=== PATIENT | male | born 1990 | race African-American/Black ===

== ENCOUNTER 2017-07-01 04:53 | Emergency (ER) | payer OTHER ==
[2017-07-01 05:04] VITALS: BP 153/98
[2017-07-01] MEDS ORDERED: METOCLOPRAMIDE HCL ORAL SOLN 10 MG/10 ML UDCUP PO ONE (07:35)
[2017-07-01] MEDS ORDERED: MAG HYDROX/AL HYDROX/SIMETH SUSP 30 ML UDCUP PO ONE (07:35)
[2017-07-01] MEDS ORDERED: LIDOCAINE 2% VISCOUS SOLN 20 ML UDCUP PO ONE (07:35)
[2017-07-01] MEDS ORDERED: FAMOTIDINE 20 MG TABLET PO ONE (08:22)
[2017-07-01 08:59] LABS: ABSOLUTE EOSINOPHILS # (AUTO) 0.3 10^3/uL (0.0-0.6); ABSOLUTE LYMPHOCYTES (AUTO) 1.5 10^3/uL (0.5-4.7); ABSOLUTE MONOCYTES (AUTO) 0.9 10^3/uL (0.1-1.4); ABSOLUTE NEUT (AUTO) 8.1 10^3/uL (1.7-8.2); BASOPHILS % (AUTO) 0.4 % (0-2); EOSINOPHILS % (AUTO) 3.1 % (0-6); HEMATOCRIT 39.7 % (37.9-51.0); HEMOGLOBIN 13.4 g/dL (13.5-17.0); HGB HCT DIFFERENCE 0.5; LYMPHOCYTES % (AUTO) 13.5 % (13-45); MEAN CORPUSCULAR HEMOGLOBIN 30.1 pg (27.0-33.4); MEAN CORPUSCULAR HGB CONC 33.7 g/dL (32.0-36.0); MEAN CORPUSCULAR VOLUME 89 fl (80-97); MONOCYTES % (AUTO) 8.5 % (3-13); RED BLOOD COUNT 4.46 10^6/uL (4.35-5.55); RED CELL DISTRIBUTION WIDTH 12.3 % (11.5-14.0); SEGMENTED NEUTROPHILS % (AUTO) 74.5 % (42-78); WHITE BLOOD COUNT 10.9 10^3/uL (4.0-10.5)
[2017-07-01 09:17] LABS: ALANINE AMINOTRANSFERASE 29 U/L (21-72); ALBUMIN 4.1 g/dL (3.5-5.0); ALKALINE PHOSPHATASE 66 U/L (38-126); ANION GAP 9 (5-19); ASPARTATE AMINO TRANSFERASE 20 U/L (17-59); BILIRUBIN,DIRECT 0.3 mg/dL (0.0-0.4); BILIRUBIN,TOTAL 0.4 mg/dL (0.2-1.3); BLOOD UREA NITROGEN 16 mg/dL (7-20); CALCIUM 9.5 mg/dL (8.4-10.2); CARBON DIOXIDE 25 mmol/L (22-30); CHLORIDE 107 mmol/L (98-107); CREATININE RESULT 0.83 mg/dL (0.52-1.25); GLUCOSE 93 mg/dL (75-110); SODIUM 141.3 mmol/L (137-145)
[2017-07-01 09:39] LABS: AMORPHOUS SEDIMENT,URINE TRACE /HPF; APPEARANCE,URINE SLIGHTLY-CLOUDY; BILIRUBIN,URINE NEGATIVE (NEGATIVE); GLUCOSE, URINE NEGATIVE (NEGATIVE); KETONES,URINE NEGATIVE (NEGATIVE); LEUKOCYTE ESTERASE,URINE NEGATIVE (NEGATIVE); NITRITE,URINE NEGATIVE (NEGATIVE); PROTEIN,URINE NEGATIVE (NEGATIVE); URINE SPECIFIC GRAVITY 1.025; UROBILINOGEN,URINE NEGATIVE mg/dL (<2.0)
--- NOTE | 2017-07-01 10:04 | ER Document Report ---
ED GI/ - General Chief Complaint: Epigastric Pain Stated Complaint: ABDOMINAL PAIN Time Seen by Provider: 07/01/17 07:34 Mode of Arrival: Ambulatory Information source: Patient Notes: Patient is a 26-year-old male who presents to the ER today for upper abdominal pain 1 month, worse over the past week. Patient states that it feels like he has to burp but cannot. He admits to some intermittent diarrhea as well. Patient that radiates up into his throat. He denies any fevers or chills. Describes the pain as a pressure and a burning he denies any gallbladder issues. He denies nausea or vomiting. TRAVEL OUTSIDE OF THE [place] IN LAST 30 DAYS: No - Related Data Allergies/Adverse Reactions: No Known Allergies Allergy (Verified 07/01/17 05:02) Past Medical History - General Information source: Patient - Social History Smoking Status: Current Every Day Smoker Chew tobacco use (# tins/day): No Frequency of alcohol use: Heavy Drug Abuse: None Family History: Reviewed & Not Pertinent Patient has suicidal ideation: No Patient has homicidal ideation: No Renal/ Medical History: Denies: Hx Peritoneal Dialysis - Immunizations Immunizations up to date: Yes Hx Diphtheria, Pertussis, Tetanus Vaccination: Yes Review of Systems - Review of Systems Constitutional: No symptoms reported EENT: No symptoms reported Cardiovascular: No symptoms reported Respiratory: No symptoms reported Gastrointestinal: See HPI Genitourinary: No symptoms reported Male Genitourinary: No symptoms reported Musculoskeletal: No symptoms reported Skin: No symptoms reported Hematologic/Lymphatic: No symptoms reported Neurological/Psychological: No symptoms reported Physical Exam - Vital signs Vitals: Temp Pulse Resp BP Pulse Ox 98.4 F 63 18 153/98 H 99 07/01/17 05:02 07/01/17 05:02 07/01/17 05:02 07/01/17 05:02 07/01/17 05:02 - Notes Notes: PHYSICAL EXAMINATION: GENERAL: Well-appearing and in no acute distress. HEAD: Atraumatic, normocephalic. EYES: Pupils equal round and reactive to light, extraocular movements intact, sclera anicteric, conjunctiva are normal. ENT: ear canals without erythema or foreign body, TMs pearly nichols with good bony landmarks, nares patent, oropharynx clear without exudates. Moist mucous membranes. NECK: Normal range of motion, supple without lymphadenopathy LUNGS: CTAB and equal. No wheezes rales or rhonchi. HEART: Regular rate and rhythm without murmurs ABDOMEN: Soft, mild epigastric tenderness. No guarding, no rebound BACK: no vertebral tenderness, normal ROM GI/: no CVA tenderness EXTREMITIES: Normal range of motion, no pitting edema. No cyanosis. NEUROLOGICAL: Cranial nerves grossly intact. Normal sensory/motor exams. PSYCH: Normal mood, normal affect. SKIN: Warm, Dry, normal turgor, no rashes or lesions noted Course - Re-evaluation Re-evalutation: 07/01/17 10:01 lab work is unremarkable today. Patient feels better after GI cocktail. - Vital Signs Vital signs: Temp Pulse Resp BP Pulse Ox 98.4 F 63 18 153/98 H 99 07/01/17 05:02 07/01/17 05:02 07/01/17 05:02 07/01/17 05:02 07/01/17 05:02 - Laboratory Result Diagrams: 07/01/17 08:40 07/01/17 08:40 Laboratory results interpreted by me: 07/01/17 08:40 WBC 10.9 H Hgb 13.4 L Discharge - Discharge Clinical Impression: Epigastric pain Condition: Stable Disposition: HOME, SELF-CARE Additional Instructions: Return immediately for any new or worsening symptoms. Follow up with primary care provider, call tomorrow to make followup appointment. Prescriptions: Ranitidine HCl [Zantac 150 mg Tablet] 150 mg PO BID #30 tablet Sucralfate [Carafate 1 gm Tablet] 1 gm PO ACHS #40 tablet
== END 2017-07-01 10:56 | disposition home or self-care (01) ==
LOC: ER 04:53
DX: R10.13 Epigastric pain (principal); R10.10 Upper abdominal pain, unspecified; R19.7 Diarrhea, unspecified; F17.200 Nicotine dependence, unspecified, uncomplicated
CPT/HCPCS: 99284; 36415; 85025; 80053; 81001; J3490

== ENCOUNTER 2018-01-02 02:26 | Emergency (ER) | payer SELFPAY ==
[2018-01-02] MEDS ORDERED: NORMAL SALINE 1000 ML 1,000 ML IV ONE (02:55)
[2018-01-02] MEDS ORDERED: ONDANSETRON HCL INJ/PF 4 MG/2 ML SDV IV ONE (02:55)
[2018-01-02] MEDS ORDERED: KETOROLAC TROMETHAMINE INJ/PF 30 MG/1 ML SDV IV ONE (02:55)
--- NOTE | 2018-01-02 02:56 | ER Document Report ---
ED GI/ - General Chief Complaint: Abdominal Pain Stated Complaint: ABDOMINAL PAIN Time Seen by Provider: 01/02/18 02:50 Notes: Patient is a 27-year-old male who comes emergency department for chief complaint of pain in his upper abdomen and right upper abdomen. He states he has been feeling pain in it over the past couple nights, tonight it kept waking him up and he could not sleep. He vomited yesterday but not today, he states pain is much worse with food. He denies any surgeries. He smokes cigarettes and reviewed, drinks alcohol, denies any recreational drugs, denies any daily medications, denies any medical history otherwise. TRAVEL OUTSIDE OF THE [place] IN LAST 30 DAYS: No - Related Data Allergies/Adverse Reactions: No Known Allergies Allergy (Verified 07/01/17 05:02) Past Medical History - General Information source: Patient - Social History Smoking Status: Current Every Day Smoker Smoking Education Provided: Yes - <3 min Frequency of alcohol use: Social Drug Abuse: Marijuana Lives with: Alone Family History: Reviewed & Not Pertinent - Medical History Medical History: Negative Renal/ Medical History: Denies: Hx Peritoneal Dialysis Surgical Hx: Negative - Immunizations Immunizations up to date: Yes Hx Diphtheria, Pertussis, Tetanus Vaccination: Yes Review of Systems - Review of Systems Constitutional: No symptoms reported EENT: No symptoms reported Cardiovascular: No symptoms reported Respiratory: No symptoms reported Gastrointestinal: See HPI Genitourinary: No symptoms reported Male Genitourinary: No symptoms reported Musculoskeletal: No symptoms reported Skin: No symptoms reported Hematologic/Lymphatic: No symptoms reported Neurological/Psychological: No symptoms reported Physical Exam - Vital signs Vitals: Temp Pulse Resp BP Pulse Ox 97.7 F 60 18 167/101 H 100 01/02/18 02:36 01/02/18 02:36 01/02/18 02:36 01/02/18 02:36 01/02/18 02:36 Interpretation: Normal - General General appearance: Appears well In distress: None - HEENT Head: Normocephalic, Atraumatic Eyes: Normal Pupils: PERRL - Respiratory Respiratory status: No respiratory distress Chest status: Nontender Breath sounds: Normal. No: Decreased air movement, Wheezing Chest palpation: Normal - Cardiovascular Rhythm: Regular. No: Tachycardia Heart sounds: Normal auscultation, S1 appreciated, S2 appreciated Murmur: No - Abdominal Inspection: Normal Distension: No distension Bowel sounds: Normal Tenderness: Tender - Tender in the epigastric area, also somewhat tender in the right upper quadrant, left upper quadrant unremarkable, lower abdomen benign. No overt guarding, rebound tenderness, or rigidity Organomegaly: No organomegaly - Back Back: Normal, Nontender. No: Tender - Extremities General upper extremity: Normal inspection, Nontender, Normal strength, Normal temperature General lower extremity: Normal inspection, Nontender, Normal strength, Normal temperature - Neurological Neuro grossly intact: Yes Cognition: Normal Orientation: AAOx4 Mario Coma Scale Eye Opening: Spontaneous Mario Coma Scale Verbal: Oriented Mario Coma Scale Motor: Obeys Commands [place] Coma Scale Total: 15 Speech: Normal Motor strength normal: LUE, RUE, LLE, RLE Sensory: Normal - Psychological Associated symptoms: Normal affect, Normal mood - Skin Skin Temperature: Warm Skin Moisture: Dry Skin Color: Normal Course - Re-evaluation Re-evalutation: Patient is in no distress on my initial evaluation, he does have mild tenderness in the right upper quadrant and some tenderness in the epigastric area on exam but no guarding or positive Ovalle sign. CBC unremarkable, chemistry unremarkable, lipase is unremarkable. Ultrasound shows cholelithiasis including a 2 cm stone, gallbladder sludge, no pericholecystic fluid, no ductal dilatation. Cholelithiasis without cholecystitis. After Toradol patient is asymptomatic, well-appearing. I discussed with patient. He is currently asymptomatic. Patient unsure if he wants to go home at this time. As result patient was given crackers and fluids for a p.o. trial. He had no symptoms with p.o. trial. Decision was made for patient to follow- up outpatient, provided with Toradol, discussed follow-up, discussed return precautions. Patient states understanding and agreement. - Vital Signs Vital signs: Temp Pulse Resp BP Pulse Ox 97.7 F 60 18 167/101 H 100 01/02/18 02:36 01/02/18 02:36 01/02/18 02:36 01/02/18 02:36 01/02/18 02:36 - Laboratory Result Diagrams: 01/02/18 03:05 01/02/18 03:05 Laboratory results interpreted by me: 01/02/18 01/02/18 03:05 03:05 Hgb 13.4 L Seg Neutrophils % 36.9 L Lymphocytes % 47.2 H Carbon Dioxide 31 H Total Bilirubin 0.1 L ALT 20 L Discharge - Discharge Clinical Impression: Abdominal pain Qualifiers: Abdominal location: epigastric Qualified Code(s): R10.13 - Epigastric pain Cholelithiasis Qualifiers: Cholelithiasis location: gallbladder Cholecystitis presence: without cholecystitis Biliary obstruction: without biliary obstruction Qualified Code(s) : K80.20 - Calculus of gallbladder without cholecystitis without obstruction Condition: Stable Disposition: HOME, SELF-CARE Additional Instructions: You have gallstones in your gallbladder. This is most likely the cause of your pain tonight. Follow-up with the surgical clinic referral, call the number provided to set this up. In the meantime I recommend you avoid fatty foods, take the Toradol as prescribed if needed for pain. Return if you worsen including returned or worsening pain, vomiting, or any other concerning or worsening symptoms. Prescriptions: Ketorolac Tromethamine [Toradol 10 mg Tablet] 10 mg PO Q8HP PRN #30 tablet PRN Reason: Forms: Return to Work Referrals: [facility] [Provider Group] - Follow up as needed
[2018-01-02 03:17] LABS: ABSOLUTE BASOPHILS # (AUTO) 0.1 10^3/uL (0.0-0.2); ABSOLUTE EOSINOPHILS # (AUTO) 0.4 10^3/uL (0.0-0.6); ABSOLUTE LYMPHOCYTES (AUTO) 3.3 10^3/uL (0.5-4.7); ABSOLUTE MONOCYTES (AUTO) 0.7 10^3/uL (0.1-1.4); ABSOLUTE NEUT (AUTO) 2.6 10^3/uL (1.7-8.2); BASOPHILS % (AUTO) 0.9 % (0-2); EOSINOPHILS % (AUTO) 5.7 % (0-6); HEMATOCRIT 40.6 % (37.9-51.0); HEMOGLOBIN 13.4 g/dL (13.5-17.0); LYMPHOCYTES % (AUTO) 47.2 % (13-45); MEAN CORPUSCULAR HEMOGLOBIN 29.2 pg (27.0-33.4); MEAN CORPUSCULAR VOLUME 89 fl (80-97); MONOCYTES % (AUTO) 9.3 % (3-13); PLATELET COUNT 241 10^3/uL (150-450); RED BLOOD COUNT 4.58 10^6/uL (4.35-5.55); RED CELL DISTRIBUTION WIDTH 12.8 % (11.5-14.0); SEGMENTED NEUTROPHILS % (AUTO) 36.9 % (42-78); TOTAL CELLS COUNTED % (AUTO) 100 %; WHITE BLOOD COUNT 7.1 10^3/uL (4.0-10.5)
[2018-01-02 03:29] LABS: ALANINE AMINOTRANSFERASE 20 U/L (21-72); ALBUMIN 4.2 g/dL (3.5-5.0); ALKALINE PHOSPHATASE 66 U/L (38-126); ANION GAP 7 (5-19); ASPARTATE AMINO TRANSFERASE 26 U/L (17-59); BILIRUBIN,DIRECT 0.1 mg/dL (0.0-0.4); BILIRUBIN,TOTAL 0.1 mg/dL (0.2-1.3); BLOOD UREA NITROGEN 18 mg/dL (7-20); CALCIUM 9.6 mg/dL (8.4-10.2); CARBON DIOXIDE 31 mmol/L (22-30); CHLORIDE 106 mmol/L (98-107); GLUCOSE 95 mg/dL (75-110); LIPASE 193.3 U/L (23-300); POTASSIUM 3.8 mmol/L (3.6-5.0); SODIUM 144.1 mmol/L (137-145); TOTAL PROTEIN 7.3 g/dL (6.3-8.2)
--- NOTE | 2018-01-02 03:41 | RADIOLOGY REPORT (SQ) ---
EXAM DESCRIPTION: U/S ABDOMEN LIMITED W/O DOP CLINICAL HISTORY: RUQ pain, vomiting COMPARISON: None. TECHNIQUE: Real-time sonographic images of the right upper abdomen were obtained using a curved multihertz transducer. FINDINGS: Pancreas: The visualized portions of the pancreas are unremarkable. Vascular: The visualized portions of the aorta and IVC are unremarkable. Liver: The liver has normal contour and echogenicity. Hepatopedal flow in the portal vein. The common bile duct measures 0.4 cm. Gallbladder: Normal gallbladder wall thickness. 2.0 cm stone in the gallbladder neck. Gallbladder sludge identified. Negative reported sonographic Ovalle sign. No pericholecystic fluid definitely identified. Right Kidney: The right kidney measures 11.2 cm in length. No hydronephrosis, solid renal mass, or shadowing calculi. IMPRESSION: 1. Cholelithiasis with gallbladder sludge. No other ultrasound evidence of acute cholecystitis.
[2018-01-02] MEDS ORDERED: ONDANSETRON ODT 4 MG TAB (6 TAB/ER DISP) PO PRN (04:55)
[2018-01-02] MEDS ORDERED: HYDROCODONE/ACETAMINOPHEN 5-325 MG (6 TAB/ER DISP) PO PRN (04:55)
[2018-01-02 05:36] VITALS: BP 143/88
== END 2018-01-02 05:18 | disposition home or self-care (01) ==
LOC: ER 02:26
DX: K80.20 Calculus of gallbladder without cholecystitis without obstruction (principal); R10.13 Epigastric pain; R10.11 Right upper quadrant pain; F17.210 Nicotine dependence, cigarettes, uncomplicated
CPT/HCPCS: 99284; 96361; 96374; 96375; 36415; 83690; 85025; 80053; 76705; J1885; J2405; J7030